=== PATIENT | female | born 1965 | race Caucasian/White ===

== ENCOUNTER → 2020-09-20 | Day surgery (SDC) | payer OTHER ==
[~2020-09-20] VITALS: Ht 165.1 cm; Wt 116.1 kg
[~2020-09-20] MED LIST: AMLODIPINE BESY10 MG PO; ASPIRIN EC81 MG PO; CITRATE OF MAG296 ML PO; CLOPIDOGREL75 MG PO; FISH OIL 1,4001 EACH PO; IRON18 MG PO; ISOSORBIDE MONO30 MG PO; LASIX20 MG PO; LIPITOR20 MG PO; LISINOPRIL40 MG PO; LOPRESSOR25 MG PO; METFORMIN HCL1000 MG PO; NOVOLOG FL100 UNIT/1 SC; OMEPRAZOLE40 MG PO; PROVERA10 MG PO; SERTRALINE HCL100 MG PO; SPIRONOLACTONE25 M1 PO; TRESIBA FL200 UNIT/1 SC; ZETIA10 MG PO
--- NOTE | 2020-09-20 09:03 | NUR ---
AFTER OBTAINING BLOOD AND CHECKING BLOOD SUGAR, FOUND TO BE 429. NOTIFIED ANESTHESIA AND DR MOSES. DECISION WAS MADE TO CANCEL SURGERY. DR MOSES INFORMED PATIENT AND IV IN RAC WAS D/C'D.
[2020-09-20 09:07] LABS: CREATININE 0.93 mg/dL (0.51-0.95); POTASSIUM 4.9 mmol/L (3.5-5.1)
== END | disposition home or self-care (01) ==
LOC: FAS 08:03
PROVIDERS: Anesthesiology
DX: N85.01 Benign endometrial hyperplasia (principal); N95.0 Postmenopausal bleeding; D64.9 Anemia, unspecified; I25.10 Atherosclerotic heart disease of native coronary artery without angina pectoris; I44.7 Left bundle-branch block, unspecified; I10 Essential (primary) hypertension; E11.9 Type 2 diabetes mellitus without complications; K21.9 Gastro-esophageal reflux disease without esophagitis; E78.00 Pure hypercholesterolemia, unspecified; E66.9 Obesity, unspecified; G47.30 Sleep apnea, unspecified; F17.210 Nicotine dependence, cigarettes, uncomplicated; Z79.4 Long term (current) use of insulin; Z79.899 Other long term (current) drug therapy; Z33.1 Pregnant state, incidental; Z91.89 Other specified personal risk factors, not elsewhere classified; Z20.822 Contact with and (suspected) exposure to COVID-19; Z53.9 Procedure and treatment not carried out, unspecified reason
CPT/HCPCS: 36415; 80048; J2250; J7120

== ENCOUNTER → 2020-12-07 | Day surgery (SDC) | payer OTHER ==
[~2020-12-07] VITALS: Ht 165.1 cm; Wt 117.9 kg
[2020-12-07 09:21] LABS: BUN/CREAT RATIO (CALC) 33.8 RATIO; CREATININE 1.48 mg/dL (0.51-0.95); POTASSIUM 4.7 mmol/L (3.5-5.1)
== END | disposition home or self-care (01) ==
LOC: FAS 08:09
PROVIDERS: Obstetrics & Gynecology
DX: N84.0 Polyp of corpus uteri (principal); F32.9 Major depressive disorder, single episode, unspecified; K21.9 Gastro-esophageal reflux disease without esophagitis; I25.10 Atherosclerotic heart disease of native coronary artery without angina pectoris; I11.0 Hypertensive heart disease with heart failure; I50.9 Heart failure, unspecified; E78.00 Pure hypercholesterolemia, unspecified; J44.9 Chronic obstructive pulmonary disease, unspecified; E11.9 Type 2 diabetes mellitus without complications; G47.30 Sleep apnea, unspecified; F17.210 Nicotine dependence, cigarettes, uncomplicated; Z99.89 Dependence on other enabling machines and devices; Z95.5 Presence of coronary angioplasty implant and graft; Z79.4 Long term (current) use of insulin; Z79.899 Other long term (current) drug therapy
CPT/HCPCS: 36415; 80048; 84703; 93005; J1100; J1170; J1885; J2250; J2405; J2704; J3010; J7120